=== PATIENT | female | born 1995 | race Caucasian/White ===

== ENCOUNTER 2021-05-30 19:25 | Outpatient (CLI) | payer OTHER | END 2021-05-30 23:59 | disposition home or self-care (01) | LOC: LAB.N 19:25 | PROVIDERS: ATTEND Family Medicine | DX: N75.0 Cyst of Bartholin's gland (principal) | CPT/HCPCS: 87070; 87181; 87205 ==

== ENCOUNTER 2021-11-12 19:05 | Emergency (ER) | payer OTHER ==
[2021-11-12] MEDS ORDERED: SODIUM CHLORIDE 0.9% 1,000 ML IV STA (19:24)
[2021-11-12] MEDS ORDERED: DROPERIDOL 5 MG/2 ML VIAL IVP STA (19:24)
--- NOTE | 2021-11-12 19:25 | ED Physician Documentation ---
History of Present Illness - Stated complaint Stated Complaint: DIZZY,VOMITING - Chief complaint Chief Complaint: General - History obtained from History obtained from: Patient - Additonal information Additional information: 26-year-old woman with problems with allergies, she has daily headaches. She had on and off headaches today that were typical for her albeit slightly worse than normal associated with light sensitivity. She was moving boxes at 4:30 PM and suddenly became vertiginous especially if she looked up and it was associated with vomiting. She tried to take meclizine but threw that up as well. She has stomach cramping, headache. No fevers, no diarrhea. No possibility of . No history of vertigo prior to this. Review of Systems Constitutional: denies: Fever, Chills Throat: denies: Dental pain / toothache, Sore throat Cardiac: denies: Chest pain / pressure, Palpitations Respiratory: denies: Dyspnea, Cough PD PAST MEDICAL HISTORY - Present Medications Home Medications: Ambulatory Orders Medication Instructions Recorded Confirmed Ondansetron Odt [Zofran] 4 mg TL Q6H PRN #10 tablet 11/12/21 - Allergies Allergies/Adverse Reactions: Allergies Allergy/AdvReac Type Severity Reaction Status Date / Time No Known Drug Allergies Allergy Verified 11/12/21 19:15 PD ED PE NORMAL - Vitals Vital signs reviewed: Yes - General General: Alert and oriented X 3, Other (She appears uncomfortable and light sensitive) - HEENT HEENT: PERRL, EOMI (Without nystagmus) - Neck Neck: Supple, no meningeal sign, No bony TTP - Neuro Neuro: Alert and oriented X 3, weight checker 2-12 intact, No motor deficit, No sensory deficit, Normal speech, Other (Normal fafcbw-nj-jpck and kvfc-sz-qgnc testing) Eye Opening: Spontaneous Motor: Obeys Commands Verbal: Oriented GCS Score: 15 Results - Vitals Vitals: Vital Signs - 24 hr 11/12/21 19:11 Temperature 36.4 C L Heart Rate 82 Respiratory 16 Rate Blood Pressure 121/80 O2 Saturation 100 Oxygen O2 Source Room air - Labs Labs: Laboratory Tests 11/12/21 11/12/21 19:30 19:30 WBC 13.2 H RBC 4.75 Hgb 13.1 Hct 39.1 MCV 82.3 MCH 27.6 MCHC 33.5 RDW 12.6 Plt Count 369 MPV 9.9 Neut # (Auto) 10.6 H Lymph # (Auto) 1.7 [place] # (Auto) 0.7 Eos # (Auto) 0.2 Baso # (Auto) 0.0 Absolute Nucleated RBC 0.00 Nucleated RBC % 0.0 Sodium 138 Potassium 4.1 Chloride 105 Carbon Dioxide 25 Anion Gap 8.0 BUN 10 Creatinine 0.6 Estimated GFR (MDRD) 123 Glucose 105 H Calcium 9.9 PD MEDICAL DECISION MAKING - ED course ED course: 26-year-old woman who developed vertigo today associate with a headache. She does have daily headaches and this 1 was not sudden in onset nor the worst of her life but worse than her average daily headaches. After the administration of some IV fluids and droperidol she was asymptomatic with a normal neuro exam including svvkax-ak-yhuy and deel-zl-xdns testing. No nystagmus again on recheck. Departure - Departure Disposition: 01 Home, Self Care Clinical Impression: Vertigo, Headache Condition: Good Record reviewed to determine appropriate education?: Yes Instructions: ED Vertigo Unspecified Prescriptions: Ondansetron Odt [Zofran] 4 mg TL Q6H PRN #10 tablet PRN Reason: Nausea / Vomiting Comments: As discussed, this could be a migraine variant or just related to something in your inner ear. Thankfully the CAT scan of your head and basic labs are unremarkable. Return if worsening and [place]
[2021-11-12 19:41] LABS: BASOPHILS % (AUTO) 0.3 %; EOSINOPHILS # (AUTO) 0.2 10^3/uL (0.0-0.7); EOSINOPHILS % (AUTO) 1.3 %; HCT - HEMATOCRIT 39.1 % (37.0-47.0); HGB - HEMOGLOBIN 13.1 g/dL (12.0-16.0); LYMPHOCYTES # (AUTO) 1.7 10^3/uL (1.5-3.5); LYMPHOCYTES % (AUTO) 12.9 %; MEAN CORPUSCULAR HEMOGLOBIN 27.6 pg (27.0-31.0); MEAN CORPUSCULAR HGB CONC 33.5 g/dL (32.0-36.0); MEAN CORPUSCULAR VOLUME 82.3 fL (81.0-99.0); MEAN PLATELET VOLUME 9.9 fL (7.9-10.8); MONOCYTES # (AUTO) 0.7 10^3/uL (0.0-1.0); MONOCYTES % (AUTO) 4.9 %; NEUTROPHILS # (AUTO) 10.6 10^3/uL (1.5-6.6); NEUTROPHILS % (AUTO) 80.3 %; PLT - PLATELET COUNT 369 10^3/uL (130-450); RED BLOOD COUNT 4.75 10^6/uL (4.20-5.40); RED CELL DISTRIBUTION WIDTH 12.6 % (12.0-15.0); WHITE BLOOD COUNT 13.2 x10^3/uL (4.8-10.8)
[2021-11-12 19:58] LABS: CALCIUM 9.9 mg/dL (8.5-10.3); CREATININE 0.6 mg/dL (0.4-1.0); POTASSIUM 4.1 mmol/L (3.5-5.0)
--- NOTE | 2021-11-12 19:59 | CT Report ---
PROCEDURE: HEAD WO INDICATIONS: headache TECHNIQUE: Noncontrast 4.5 mm thick angled axial sections acquired from the foramen magnum to the vertex. For r adiation dose reduction, the following was used: automated exposure control, adjustment of mA and/or kV according to patient size. COMPARISON: None. FINDINGS: Image quality: Excellent. CSF spaces: Basal cisterns are patent. No extra-axial fluid collections. Ventricles are normal in size and shape. Brain: No midline shift. No intracranial masses or hemorrhage. Levine-white matter interface is norm al. Skull and face: Calvarium and visualized facial bones are intact, without suspicious lesions. Sinuses: Visualized sinuses and mastoids are clear. IMPRESSION: No acute intracranial abnormality. Reviewed by: Chip Simpson MD on 11/12/2021 7:58 PM [facility] Approved by: Chip Simpson MD on 11/12/2021 7:58 PM [facility] Station ID: [id number]
[2021-11-12 20:32] VITALS: BP 108/67
== END 2021-11-12 20:32 | disposition home or self-care (01) ==
LOC: ED 19:05
DX: R42 Dizziness and giddiness (principal); R51.9 Headache, unspecified
CPT/HCPCS: 36415; 80048; 85025; 96374; 99282